=== PATIENT | male | born 1955 | race Caucasian/White ===

== ENCOUNTER 2016-05-29 08:18 | Emergency (ER) | payer OTHER ==
[2016-05-29] VITALS (9 sets, daily range): BP systolic 133–188; BP diastolic 74–106; PULSE 79–99; RESP 18; TEMP 98.1; O2SAT 94–99
[~2016-05-29] VITALS: Ht 193 cm; Wt 110.0 kg
[2016-05-29] MEDS ORDERED: LORazepam 2 MG/ML VIAL IV ONE (08:30)
[2016-05-29] MEDS ORDERED: SODIUM CHLORIDE 0.9% FLUSH 10 ML FLUSH IVF PRN (08:30)
[2016-05-29] MEDS ORDERED: SODIUM CHLOR 0.9% 1000 ML INJ 1,000 ML IV ONE (08:45)
[2016-05-29] MEDS ORDERED: ONDANSETRON HCL 4 MG/2 ML VIAL IV PUSH ONE (08:45)
[2016-05-29 08:52] LABS: BASOPHIL % 0.4 % (0.0-2.0); EOSINOPHIL % 0.3 % (0.0-4.0); HEMATOCRIT 44.2 % (39.0-51.0); HEMO FLAGS DIFF FINAL; LYMPH % 21.9 % (9.0-44.0); LYMPHOCYTE # 1.6 TH/MM3 (1.0-4.8); MEAN CELL VOLUME 91.3 FL (80.0-100.0); MEAN CORPUSCULAR HEMOGLOBIN 31.4 PG (27.0-34.0); MEAN CORPUSCULAR HGB CONC 34.4 % (32.0-36.0); MONO % 9.3 % (0.0-8.0); NEUT % 68.1 % (16.0-70.0); PLATELET COUNT 181 TH/MM3 (150-450); RED BLOOD COUNT 4.84 MIL/MM3 (4.50-5.90); RED CELL DISTRIBUTION WIDTH 12.2 % (11.6-17.2); WHITE BLOOD COUNT 7.3 TH/MM3 (4.0-11.0)
[2016-05-29 09:03] LABS: AMPHETAMINE, URINE NEG (NEG); BARBITURATES, URINE NEG (NEG); COCAINE, URINE NEG (NEG)
[2016-05-29 09:13] LABS: ANION GAP 9 MEQ/L (5-15)
[2016-05-29 09:16] LABS: ALKALINE PHOSPHATASE 76 U/L (45-117); ALT (GPT) 87 U/L (12-78); AST (GOT) 60 U/L (15-37); BICARBONATE 27.6 MEQ/L (21.0-32.0); BLOOD UREA NITROGEN 10 MG/DL (7-18); CHLORIDE 98 MEQ/L (98-107); GLOMERULAR FILTRATION RATE 96 ML/MIN (>89); POTASSIUM 3.8 MEQ/L (3.5-5.1); SODIUM (NA) 135 MEQ/L (136-145); TOTAL BILIRUBIN ADULT 0.5 MG/DL (0.2-1.0)
--- NOTE | 2016-05-29 10:25 | PD ---
HPI Chief Complaint: Medical Clearance Time Seen by Provider: 08:29 Travel History International Travel<30 days: No Contact w/Intl Traveler<30days: No Traveled to known affect area: No History of Present Illness HPI 60-year-old male presents with feeling of alcohol withdrawal wanting to get help. He states that he has been drinking for multiple years. He drinks a pint or so of hard liquor a day. He states that he is out here to move into a sober house where it is a support system. He states he's never had an alcohol withdrawal seizure or been hospitalized for alcohol withdrawal. He states he has been trying to cut back on drinking and still drinks a lot but instead of hard liquor he will drink wine. He states his last alcohol was a bottle of wine yesterday. He denies other concurrent complaints. [facility] Past Medical History Cardiomyopathy: Yes Hypertension: Yes Influenza Vaccination: No ?: Not Past Surgical History Cardiac Surgery: Yes (AICD implanted in 2000, Stent in august 2015) Genitourinary Surgery: Yes (inguinal hernia) Social History Alcohol Use: Yes (1 quart of vodka daily) Tobacco Use: No Substance Use: No Allergies-Medications (Allergen,Severity, Reaction): Coded Allergies: No Known Allergies (Unverified , 05/29/16) Review of Systems Except as stated in HPI: all other systems reviewed are Neg Physical Exam Narrative GENERAL: Well-nourished, well-developed patient. SKIN: Warm and dry. HEAD: Normocephalic and atraumatic. EYES: No injection or drainage. ENT: No nasal drainage noted. NECK: Supple, trachea midline. CARDIOVASCULAR: Regular rate and rhythm RESPIRATORY: Breath sounds equal bilaterally. No accessory muscle use. GASTROINTESTINAL: Abdomen soft, non-tender, nondistended. EXTREMITIES: No edema. NEUROLOGICAL: Awake and alert. Motor and sensory grossly within normal limits. Normal speech. Data Data Last Documented VS Vital Signs Date Time Temp Pulse Resp B/P Pulse Ox O2 Delivery O2 Flow Rate FiO2 05/29/16 14:26 90 18 158/91 99 Room Air 05/29/16 08:27 98.1 Orders Complete Blood Count With Diff (05/29/16 08:29) Comprehensive Metabolic Panel (05/29/16 08:29) Electrocardiogram (05/29/16 08:29) Oximetry (05/29/16 08:29) Iv Access Insert/Monitor (05/29/16 08:29) Ecg Monitoring (05/29/16 08:29) Psych Screen (05/29/16 08:29) Sodium Chloride 0.9% Flush (Ns Flush) (05/29/16 08:30) Lorazepam Inj (Ativan Inj) (05/29/16 08:30) Drug Screen, Random Urine (05/29/16 08:29) Alcohol (Ethanol) (05/29/16 08:29) Sodium Chlor 0.9% 1000 Ml Inj (Ns 1000 M (05/29/16 08:45) Ondansetron Inj (Zofran Inj) (05/29/16 08:45) Alcohol Withdrawal Asmt-Ciwa ONCE (05/29/16 11:59) Flumazenil Inj (Romazicon Inj) (05/29/16 12:00) Lorazepam (Ativan) (05/29/16 12:00) Lorazepam Inj (Ativan Inj) (05/29/16 12:00) Lorazepam (Ativan) (05/29/16 12:00) Lorazepam Inj (Ativan Inj) (05/29/16 12:00) Lorazepam Inj (Ativan Inj) (05/29/16 12:00) Lorazepam Inj (Ativan Inj) (05/29/16 12:00) Labs Laboratory Tests Test 05/29/16 05/29/16 08:30 08:40 White Blood Count 7.3 TH/MM3 Red Blood Count 4.84 MIL/MM3 Hemoglobin 15.2 GM/DL Hematocrit 44.2 % Mean Corpuscular Volume 91.3 FL Mean Corpuscular Hemoglobin 31.4 PG Mean Corpuscular Hemoglobin 34.4 % Concent Red Cell Distribution Width 12.2 % Platelet Count 181 TH/MM3 Mean Platelet Volume 8.1 FL Neutrophils (%) (Auto) 68.1 % Lymphocytes (%) (Auto) 21.9 % Monocytes (%) (Auto) 9.3 % Eosinophils (%) (Auto) 0.3 % Basophils (%) (Auto) 0.4 % Neutrophils # (Auto) 5.0 TH/MM3 Lymphocytes # (Auto) 1.6 TH/MM3 Monocytes # (Auto) 0.7 TH/MM3 Eosinophils # (Auto) 0.0 TH/MM3 Basophils # (Auto) 0.0 TH/MM3 CBC Comment DIFF FINAL Differential Comment Sodium Level 135 MEQ/L Potassium Level 3.8 MEQ/L Chloride Level 98 MEQ/L Carbon Dioxide Level 27.6 MEQ/L Anion Gap 9 MEQ/L Blood Urea Nitrogen 10 MG/DL Creatinine 0.82 MG/DL Estimat Glomerular Filtration 96 ML/MIN Rate Random Glucose 151 MG/DL Calcium Level 9.0 MG/DL Total Bilirubin 0.5 MG/DL Aspartate Amino Transf 60 U/L (AST/SGOT) Alanine Aminotransferase 87 U/L (ALT/SGPT) Alkaline Phosphatase 76 U/L Total Protein 8.2 GM/DL Albumin 4.2 GM/DL Ethyl Alcohol Level LESS THAN 3 MG/DL Urine Opiates Screen NEG Urine Barbiturates Screen NEG Urine Amphetamines Screen NEG Urine Benzodiazepines Screen POS Urine Cocaine Screen NEG Urine Cannabinoids Screen NEG MDM Medical Decision Making Medical Screen Exam Complete: Yes Emergency Medical Condition: Yes Medical Record Reviewed: Yes (past history confirmed) Interpretation(s) CBC & BMP Diagram 05/29/16 08:30 EKG is sinus rhythm with left bundle without prior for comparison Differential Diagnosis Alcohol withdrawal, electrolyte abnormality, dehydration Narrative Course Will check blood work and dose with IV fluids, Ativan, Zofran and reevaluate ed workup no acute, medically cleared for psych as he told staff that he had thoughts of wanting to hurt himself and had history of that in the past. Alcohol withdrawal protocol ordered while awaiting psych Mental health screening discussed with the patient. Psychiatric screen ordered. Diagnosis Primary Impression: Alcohol withdrawal Additional Impression: Suicidal thoughts Radha Fraire MD May 29, 2016 10:25
[2016-05-29] MEDS ORDERED: FLUMAZENIL 0.5 MG/5 ML VIAL IV PUSH PRN (12:00)
[2016-05-29] MEDS ORDERED: LORazepam 2 MG/ML VIAL IV PUSH PRN ×4 (12:00)
[2016-05-29] MEDS ORDERED: LORazepam 1 MG TAB PO PRN (12:00)
[2016-05-29] MEDS ORDERED: LORazepam 2 MG TAB PO PRN (12:00)
--- NOTE | 2016-05-30 11:24 | EKG ---
Date Performed: 05/29/2016 Time Performed: 09:03:27 PTAGE: 60 years EKG: Sinus rhythm MARKED LEFT AXIS DEVIATION LEFT BUNDLE BRANCH BLOCK ABNORMAL ECG NO PREVIOUS TRACING DOCTOR: Obinna Neri Interpretating Date/Time 05/30/2016 11:22:43
== END 2016-05-30 07:00 | disposition home or self-care (01) ==
LOC: NEPE 08:18 → NEDAMB 05-30 07:00
DX: F10.239 Alcohol dependence with withdrawal, unspecified (principal); Y90.0 Blood alcohol level of less than 20 mg/100 ml; R94.31 Abnormal electrocardiogram [ECG] [EKG]
CPT/HCPCS: 80053; 80307; 85025; 93005; 96374; 96375; 99285; J2060; J2405; J7030